=== PATIENT | female | born 1970 | race Caucasian/White ===

== ENCOUNTER 2016-10-23 15:31 | Emergency (ER) | payer OTHER ==
[2016-10-23 15:44] VITALS: BP 140/75; PULSE 69; RESP 16; TEMP 98.2; O2SAT 98
--- NOTE | 2016-10-23 16:58 | EDPHY ---
H & P Smoking Status: Never smoked Time Seen by Provider: 10/23/16 16:33 HPI/ROS: CHIEF COMPLAINT: Laceration right thumb HISTORY OF PRESENT ILLNESS: 46-year-old female presents to the emergency department with a laceration to her right thumb. Patient accidentally cut her thumb yesterday morning with a knife and presents now to the emergency department over 24 hours later for evaluation. She believes her tetanus shot is current. She is left-hand dominant. She denies any other trauma or injury. ROS: Denies numbness or tingling in her fingers, retained foreign body. (Dyan Mijares) Past Medical/Surgical History: Electrodes in brain (Dyan Mijares) Social History: and lives in [place] (Dyan Mijares) Physical Exam: On examination patient has a very superficial less than 2 cm flap laceration to the dorsal aspect of her right thumb overlying proximal phalanx. It does not extend into her joint. She has full flexion and full extension. No palpable bony tenderness. No redness or signs of infection. No evidence of retained foreign body. (Dyan Mijares) Constitutional: Initial Vital Signs Temperature (C) 36.8 C 10/23/16 15:42 Heart Rate 69 10/23/16 15:42 Respiratory Rate 16 10/23/16 15:42 Blood Pressure 140/75 H 10/23/16 15:42 O2 Sat (%) 98 10/23/16 15:42 O2 Delivery Mode Room Air Allergies/Adverse Reactions: Sulfa (Sulfonamide Antibiotics) Allergy (Unknown, Verified 10/23/16 15:42) vancomycin Allergy (Unknown, Verified 10/23/16 15:42) Home Medications: Medication Instructions Recorded NO HOME MEDS 07/03/09 MDM/Departure - MDM ED Course/Re-evaluation: 46-year-old female presents over 24 hours later after superficial laceration to right thumb. I do not think sutures are indicated. I did explain this to the patient and she understands the risk of infection. She believes her tetanus shot is current. She was given wound care precautions. He (Dyan Mijares) The patient was evaluated and managed by the Physician Environmental Engineering Aide/ Nurse Practitioner. My co-signature indicates that I have reviewed this chart and I agree with the findings and plan of care as documented. I am the secondary supervising physician. (Sylvia Nunez) - Depart Disposition: Home, Routine, Self-Care Clinical Impression: Laceration of right thumb Qualifiers: Encounter type: initial encounter Qualified Code(s): S61.011A - Laceration without foreign body of right thumb without damage to nail, initial encounter Condition: Good Instructions: Acute Wounds (ED) Additional Instructions: Return if you notice any signs or symptoms of infection such as redness, swelling, increased pain, fever, purulent drainage. Referrals: Sebas Lua MD [Primary Care Provider] - As per Instructions
== END 2016-10-23 17:45 | disposition home or self-care (01) ==
DX: S61.011A Laceration without foreign body of right thumb without damage to nail, initial encounter (principal); W26.0XXA Contact with knife, initial encounter

== ENCOUNTER 2018-02-23 19:43 | Emergency (ER) | payer OTHER ==
--- NOTE | 2018-02-23 20:34 | EDPHY ---
H & P Time Seen by Provider: 02/23/18 20:33 HPI/ROS: CHIEF COMPLAINT: Right hand abrasion and right-sided head injury HISTORY OF PRESENT ILLNESS: 47-year-old female here with concern for right scalp injury and an abrasion. She states she was walking her dog approximately 1 hr ago when her dog pulled her awkwardly and she fell to the ground and hit her head. There was no loss of consciousness. She denies any eye pain. She is not on any blood thinners. She denies any other injuries other than the right palm. REVIEW OF SYSTEMS: Constitutional: No fever, no chills. Eyes: No discharge. ENT: No sore throat. Cardiovascular: No chest pain, no palpitations. Respiratory: No cough, no shortness of breath. Gastrointestinal: No abdominal pain, no vomiting. Genitourinary: No hematuria. Musculoskeletal: No back pain. Skin: No rashes. Neurological: No headache. Smoking Status: Never smoked Physical Exam: General Appearance: Alert and no distress. Eyes: Pupils equal and round no injection. Respiratory: Chest is nontender, lungs are clear to auscultation. Cardiac: regular rate and rhythm. Gastrointestinal: Abdomen is soft and nontender, no masses, bowel sounds normal. Musculoskeletal: Neck is supple and nontender. Extremities have full range of motion and are nontender. Full range of motion of the right upper extremity. Examination the right hand reveals no deformity. There is minor abrasion to the palm of the right hand. Skin: No rashes. Minor abrasion/superficial laceration to right eyebrow. Abrasion to right palm. Constitutional: Initial Vital Signs Temperature (C) 37.3 C 02/23/18 19:57 Heart Rate 83 02/23/18 19:57 Respiratory Rate 18 02/23/18 19:57 Blood Pressure 125/86 H 02/23/18 19:57 O2 Sat (%) 97 02/23/18 19:57 O2 Delivery Mode Room Air Allergies/Adverse Reactions: Sulfa (Sulfonamide Antibiotics) Allergy (Unknown, Verified 02/23/18 19:56) vancomycin Allergy (Unknown, Verified 02/23/18 19:56) amoxicillin Allergy (Verified 02/23/18 19:57) Home Medications: Medication Instructions Recorded NO HOME MEDS 07/03/09 Medical Decision Making ED Course/Re-evaluation: 47-year-old female here with ground level fall resulting in right hand abrasion and right scalp injury. Myself and my supervising physician both evaluated the patient and agree that there was no repairable laceration. The wound was irrigated and a Steri-Strip was placed. Additionally the hand was irrigated and dressed. No evidence of intra-ocular injury, skull fracture, facial bone fracture on my exam. Differential Diagnosis: Fracture, dislocation, orbital fracture, intra-ocular injury Departure - Departure Disposition: Home, Routine, Self-Care Clinical Impression: Abrasion of right eyebrow, Abrasion hand Condition: Good Instructions: Abrasion (ED) Additional Instructions: Apply topical antibiotic ointment to the abrasion on her hand 3 times a day until the wound is healed. Let the Steri-Strips fall off on their own from year face. Developed worsening pain, eye pain, vomiting, vision changes or other worrisome symptoms please return to the ER. Referrals: Sebas Lua MD [Primary Care Provider] - As per Instructions
[2018-02-23 21:35] VITALS: BP 128/78
== END 2018-02-23 21:33 | disposition home or self-care (01) ==
DX: S00.81XA Abrasion of other part of head, initial encounter (principal); S60.511A Abrasion of right hand, initial encounter; W19.XXXA Unspecified fall, initial encounter; Y93.K1 Activity, walking an animal; Y99.8 Other external cause status

== ENCOUNTER 2018-04-10 09:32 | Emergency (ER) | payer OTHER ==
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
[2018-04-10 11:36] VITALS: BP 129/84
== END 2018-04-10 11:35 | disposition home or self-care (01) ==
LOC: EDUNIT#
DX: S16.1XXA Strain of muscle, fascia and tendon at neck level, initial encounter (principal); M50.321 Other cervical disc degeneration at C4-C5 level; V49.09XA Driver injured in collision with other motor vehicles in nontraffic accident, initial encounter; Y92.9 Unspecified place or not applicable; Y93.9 Activity, unspecified

== ENCOUNTER → 2018-06-04 | Outpatient (CLI) | payer OTHER | LOC: FIMAGING 08:56 | DX: G24.9 Dystonia, unspecified (principal); M54.2 Cervicalgia; R11.0 Nausea ==